=== PATIENT | female | born 1950 | race African-American/Black ===

== ENCOUNTER 2024-04-24 08:11 | Outpatient (CLI) | payer MEDICARE, OTHER | END 2024-04-24 08:12 | disposition home or self-care (01) | LOC: CSHMAMMO 08:11 | PROVIDERS: ATTEND Family Medicine | DX: Z12.31 Encounter for screening mammogram for malignant neoplasm of breast (principal); Z91.89 Other specified personal risk factors, not elsewhere classified | CPT/HCPCS: 77063; 77067 ==